=== PATIENT | female | born 1965 | race Caucasian/White ===

== ENCOUNTER 2016-10-28 18:05 | Inpatient (IN) | payer BC ==
--- NOTE | ~2016-10-28 | DS ---
Discharge Summary [facility] [address] [place]. [address] NAME: LE MCKEON : 65 STATUS : DIS IN PAT#: [id number] AGE: 50 ADM/REG DATE : 10/28/16 MR#: [id number] REPORT SERV DATE: 11/05/16 DICTATED BY: JOSE BALL DATE: 11/05/16 REPORT STATUS : Draft TRANSCRIBED BY: JAKOB DATE: 11/05/16 Data Collection from hospitalization DISCHARGE DIAGNOSIS: Left knee ( ) fracture. CONSULTATIONS: None. PROCEDURES PERFORMED: MRI of the left knee without contrast on 10/29/2016. MEDICATIONS: Vistaril 25 to 100 mg at bedtime as needed, Zantac 150 mg daily as needed, Prilosec 20 mg daily as needed, Dilaudid 2 mg one every four hours as needed, and Robaxin 500 mg every eight hours as needed for spasms. CONDITION AT DISCHARGE: Upon discharge, she did appear to be doing well and had no new complaints. DISPOSITION: She had been discharged home to continue a regular diet. She was to be nonweightbearing on the left lower extremity. She was to follow up with me in the office as directed. HOSPITAL COURSE: This 50-year-old female was cleaning out a bird nest with birds from her ( ) outside when a bird flew at her and she fell from the ladder landing directly on to her extended left lower extremity. She stated that she had a "pop" and then gradual onset of swelling and an inability to walk. She had presented to [facility] [place] ( ) with negative knee x-rays and was discharged. This had worsened on the day of admission and she had presented to [facility] Emergency Room where she was admitted for observation secondary to ( ) pain and an inability to walk. She was admitted for further evaluation and treatment. Upon admission to the hospital, she was begun on Dilaudid at 1 mg IV every four hours as needed as well as Zofran 4 mg IV every four hours as needed. She had been placed on a regular diet to be n.p.o. after midnight. The Dilaudid was to be for severe pain, and she was also placed on oxycodone 5 mg orally every four hours for moderate pain. Following the day of admission, she was afebrile and her vital signs were stable. She was continued on supportive care and did still have some pain in her left lower extremity. She did undergo the above MRI of the left lower extremity without contrast and she did have a hinged knee brace applied to the left lower extremity. She had also been evaluated by Physical Therapy. On 10/30/2016, her pain had decreased some. She was noted to have had a headache with some codeine and adjustments were made in her medications. She did remain afebrile and her vital signs were stable. She did continue to do well and was then discharged on 10/31/2016 with the above instructions. Information collected by: Rekha Rand. I submit the above information as my discharge summary. DARÍO/JAKOB Jose Ball M.D. Discharge Summary [facility] [address] [place]. [address] NAME: LE MCKEON : 65 STATUS : DIS IN PAT#: [id number] AGE: 50 ADM/REG DATE : 10/28/16 MR#: [id number] REPORT SERV DATE: 11/05/16 DICTATED BY: JOSE BALL DATE: 11/05/16 REPORT STATUS : Draft TRANSCRIBED BY: JAKOB DATE: 11/05/16 / [id number] CC: Jose Ball M.D.
[2016-10-28] MEDS ORDERED: VIST25 PO (19:54)
[2016-10-28] MEDS ORDERED: ZANTAC150 MG PO (19:55)
[2016-10-28] MEDS ORDERED: PRILO PO (19:55)
[2016-10-31] MEDS ORDERED: DIL2TAB (13:02)
[2016-10-31] MEDS ORDERED: DIL2TAB PO (13:02)
[2016-10-31] MEDS ORDERED: METHOC500B PO (13:03)
== END 2016-10-31 17:40 | disposition home or self-care (01) | DRG 563 ==
LOC: ER 18:05 → 3SO 19:54
DX: S82.142A Displaced bicondylar fracture of left tibia, initial encounter for closed fracture (principal); W11.XXXA Fall on and from ladder, initial encounter; Y93.H9 Activity, other involving exterior property and land maintenance, building and construction; Y92.017 Garden or yard in single-family (private) house as the place of occurrence of the external cause
CPT/HCPCS: 72170; 73560-LT; 73721-LT; 96374; 96375; 96376; 97116-GP; 97161-GP; 97530-GP; 99284; A9270-GY; G0378; J1170; J2405